=== PATIENT | female | born 1930 | race Caucasian/White ===

== ENCOUNTER 2016-11-09 16:24 | Emergency (ER) | payer MEDICARE, OTHER ==
[~2016-11-09] VITALS: Ht 165.1 cm; Wt 62.0 kg
[2016-11-09 16:52] VITALS: BP 139/73; PULSE 65; RESP 16; TEMP 98.4; O2SAT 96
== END 2016-11-09 21:53 | disposition left against medical advice (07) ==
LOC: PHED 16:24
DX: Z53.21 Procedure and treatment not carried out due to patient leaving prior to being seen by health care provider (principal)
CPT/HCPCS: 99281